=== PATIENT | male | born 1985 | race Caucasian/White ===

== ENCOUNTER → 2020-11-30 10:00 | Outpatient (CLI) | payer OTHER, SELFPAY ==
--- NOTE | ~2020-11-30 | MR_ITS ---
EXAMINATION: MR brain/brain stem wo/w con EXAM DATE: 11/30/2020 11:09 INDICATION: R51.9 - Headache, unspecified headaches. TECHNIQUE: Magnetic resonance imaging (MRI) of the brain/brain stem obtained without contrast. Sagit sheron T1, axial diffusion, gradient echo (T2*), T1, T2, FLAIR sequences obtained. Patient was then inj ected with 14 cc intravenous Multihance contrast. Axial and coronal postcontrast T1 weighted sequence s obtained. There is no prior study for comparison. FINDINGS: Multiple right maxillary sinus mucous retention cysts including a large one which fills mos t of this sinus. There are small to moderate-sized left maxillary sinus mucous retention cyst. There is mild to moderate bilateral anterior ethmoid mucoperiosteal thickening. There are 3 punctate left periventricular white matter hyperintensities which are nonspecific. This i s considered within normal limits for patient's age. There are no areas of restricted diffusion to morgan ggest acute infarction. There is no acute hemorrhage seen on the T2*, a hemosiderin sensitive sequen ce. No intraparenchymal brain mass. The ventricles are normal in size. There are no extra-axial col lections. Flow voids are seen in the cerebral arteries on the T2-weighted sequences consistent with their expected patency. The orbits are unremarkable. Soft tissue is unremarkable. There are no ar eas of abnormal enhancement on the postcontrast images. IMPRESSION: 1. Mucoperiosteal opacity, retention cysts as above. 2. Several punctate left periventricular signal abnormalities, within normal limits for patient's ag e. Reviewed, dictated and finalized at location B. ER ASSOCIATE IMPRESSION: 1. Mucoperiosteal opacity, retention cysts as above. 2. Several punctate left periventricular signal abnormalities, within normal l imits for patient's age.
[2020-11-30 10:49] LABS: Estimated Glomerular Filt Rate > 60
== END ==
PROVIDERS: PCP Family Medicine; Visit Provider Physician Assistant Medical
DX: R51.9 Headache, unspecified (principal); R93.0 Abnormal findings on diagnostic imaging of skull and head, not elsewhere classified
CPT/HCPCS: 70553; A9577